=== PATIENT | female | born 1980 | race Caucasian/White ===

== ENCOUNTER 2024-08-08 11:08 | Emergency (ER) | payer MEDICARE, OTHER, SELFPAY ==
[2024-08-08 11:26] VITALS: BP 137/98
[2024-08-08 11:46] VITALS: BMI 43.8
--- NOTE | 2024-08-08 13:31 | ED.GENMED ---
History of Present Illness
General
Chief Complaint: Psychiatric Problem
Source: patient
Exam Limitations: none
Time Seen by Provider: 08/08/24 13:16
Nursing documentation reviewed up to this point in time: agreed with
History of Present Illness
History of Present Illness:
44 y/o F with h/o depression
here after calling a hotline through [facility] of some passive suicidal thoughts
she has no plan
she feels ok but was instructed to come in
holidays are hard fo rher
she is compliant with meds
no complaints medically
here to speak with crisis
Past History
Past History
ED Past Medical History: Hypothyroidism and Psychiatric (Bipolar disorder, chronic anxiety, insomnia, benzodiazepine abuse)
ED Past Surgical History: Orthopedic
Social History
Tobacco: Former smoker (Quit 4 months ago)
Alcohol: None
Drug: None
Personal: Single
Living: alone
Employment: Not employed
Family History
Family History: Other (Breast cancer and diabetes)
Review of Systems
Review of Systems
Allergies reviewed?: Yes
All Other Systems: Not applicable
Phy Exam
Physical Exam
Physical Exam:
GENERAL: Alert , in no apparent distress
CARDIAC: Regular rate and rhythm .
LUNGS: Clear breath sounds bilaterally, no acute respiratory distress, no wheezes/rales/rhonchi
NEUROLOGICAL: Alert and oriented, no focal neuro deficits
SKIN: Warm and dry, skin intact.
PSYCH: Normal and appropriate interaction.
Course
Orders/Labs/Results
Orders:
Orders
08/08/24 11:35
Crisis Consult Urgent
Reason for Consult: depression denies SI
Vital Signs
Initial and Last Documented VS:
Initial Vital Signs
Temp Pulse Resp BP Pulse Ox
36.7 C 83 16 137/98 96
08/08/24 11:26 08/08/24 11:26 08/08/24 11:26 08/08/24 11:26 08/08/24 11:26
Last Documented Vital Signs
Temp Pulse Resp BP Pulse Ox
36.7 C 83 16 137/98 96
08/08/24 11:26 08/08/24 11:26 08/08/24 11:26 08/08/24 11:26 08/08/24 11:26
MDM/Problems Addressed
Differential Diagnosis Includes:
depression
MDM/Problems Addressed:
44 y/o F with depression
here after [facility] hotline for SI this morning and being instructed to come in to speak with someone
pt feels ok now
she has no plain
saw crisis and is cleared to return to her outpatient
she has no medical complaints
denies currrent SI
d/c home
*Critical Care Note
Total Time (30-74mins, 75-104mins- exclusive of procedures): Not Applicable
ED Attending Note
-
Portions of this chart may have been created with voice recognition software.� Occasional wrong word or��sound alike� substitutions may have occurred due to the inherent limitations of voice recognition software.
Discharge Plan
Departure
Patient Disposition: Home (Routine Discharge)
Date of Disposition: 08/08/24
Time of Disposition: 13:36
Patient with high blood pressure during this ER visit?: No
Condition: Fair
Covid-19: Not Applicable
Discharge Problem:
Depression
Instructions: Depression, Adult (DC)
Prescriptions:
No Action
olanzapine [Zyprexa] 15 MG tablet
15 mg PO HS
lamotrigine [Lamictal] 100 MG tablet
400 mg PO NOON
escitalopram oxalate 20 MG tablet
20 mg PO HS
lorazepam [Ativan] 2 MG tablet
2 mg PO TID
docosahexaenoic acid-epa 1 CAP capsule
1 cap PO DAILY
Trintellix 20 MG tablet
20 mg PO HS
Rexulti 2 MG tablet
2 mg PO 1900
pantoprazole 40 MG tablet,delayed release (DR/EC)
40 mg PO DAILY Qty: 14 0RF
cefuroxime axetil 500 MG tablet
500 mg PO BID Qty: 20 0RF
ondansetron HCl 4 MG tablet
4 mg PO TIDPRN PRN (Reason: nausea) Qty: 6 0RF
ibuprofen 600 MG tablet
600 mg PO TIDPRN PRN (Reason: pain) Qty: 30 0RF
naproxen 500 mg tablet
500 mg PO BID PRN (Reason: Pain) Qty: 15 0RF
Referrals:
Shirley Hutson CRNP [Family Provider] - Follow up in 2-3 days
Activity Restrictions/Additional Instructions:
YOU WERE SEEN BY CRISIS TODAY, RETURN TO YOUR OUTPATIENT PROGRAM FOR FURHTER TREATMENT
RETURN TO THE ER FOR ANY CONCERNS
Interventions
Interventions:
*Risk Screen - Suicide Last Done: 08/08/24 11:10
*General Assessment Last Done: 08/08/24 11:46
*Neglect/Abuse Screening Last Done: 08/08/24 13:42
ED- Fall Risk Assessment Last Done: 08/08/24 13:42
*ED COVID-19 Vaccine History Last Done: 08/08/24 11:46
*Nursing Disposition Last Done: 08/08/24 13:42
ED-Psychological Assessment Last Done: 08/08/24 11:46
Discharge Date and Time
Discharge Date/Time: 08/08/24 13:42
Print Language: CHINESE
== END 2024-08-08 13:42 | disposition home or self-care (01) ==
LOC: EMR 11:08
PROVIDERS: EMERGENCY PHYSICIAN Emergency Medicine; FAMILY PHYSICIAN Nurse Practitioner Family
DX: F31.9 Bipolar disorder, unspecified (principal); E03.9 Hypothyroidism, unspecified; F41.9 Anxiety disorder, unspecified; G47.00 Insomnia, unspecified; Z80.3 Family history of malignant neoplasm of breast; Z83.3 Family history of diabetes mellitus; Z87.891 Personal history of nicotine dependence
CPT/HCPCS: 99283

== ENCOUNTER 2025-03-13 18:54 | Emergency (ER) | payer MEDICARE, OTHER, SELFPAY ==
[2025-03-13 18:59] VITALS: BP 145/96
[2025-03-13 19:09] VITALS: BMI 43.0
[2025-03-13] MEDS: CLEOCIN 450 MG PO (19:31)
[2025-03-13] MEDS: TORADOL 15 MG IM (19:32)
--- NOTE | 2025-03-13 19:38 | ED.GENMED ---
History of Present Illness
General
Chief Complaint: Oral/Mouth Problem
Source: patient
Exam Limitations: none
Time Seen by Provider: 03/13/25 19:05
Nursing documentation reviewed up to this point in time: agreed with
History of Present Illness
History of Present Illness:
45-year-old female presenting to the emergency department today with concerns of left-sided tooth discomfort has been ongoing for a few days contacted the dentist who can see her on Saturday, 2 days from today. Denies any fevers has noticed some
swelling to the area. No trouble swallowing or breathing.
Past History
Past History
ED Past Medical History: Hypothyroidism and Psychiatric (Bipolar disorder, chronic anxiety, insomnia, benzodiazepine abuse)
ED Past Surgical History: Orthopedic
Social History
Tobacco: Former smoker (Quit 4 months ago)
Alcohol: None
Drug: None
Personal: Single
Living: alone
Employment: Not employed
Family History
Family History: Other (Breast cancer and diabetes)
Review of Systems
Review of Systems
Allergies reviewed?: Yes
All Other Systems: ROS reviewed and negative except as documented in HPI and ROS
Phy Exam
Physical Exam
Physical Exam:
GENERAL: Alert , in no apparent distress
EYE: pupils equal and reactive
NECK: Supple, no significant adenopathy.
ENT: Very slight redness and irritation to the left sided premolar region of the mandibular region laterally. Normal posterior pharynx normal dental mucosa otherwise. o/p clr, mmm.
CARDIAC: Regular rate and rhythm .
LUNGS: Clear breath sounds bilaterally, no acute respiratory distress, no wheezes/rales/rhonchi
ABDOMEN: Soft, without focal tenderness, no r/g, no cvat
NEUROLOGICAL: Alert and oriented, no focal neuro deficits
SKIN: Warm and dry, skin intact.
MUSCULOSKELETAL: No edema, well perfused.
PSYCH: Normal and appropriate interaction.
Course
Orders/Labs/Results
Orders:
Orders
03/13/25 19:23
Clindamycin HCl [Cleocin] 450 mg PO NOW STA
Ketorolac [Toradol] 15 mg IM NOW STA
Vital Signs
Initial and Last Documented VS:
Initial Vital Signs
Temp Pulse Resp BP Pulse Ox
98.0 F 79 16 145/96 99
03/13/25 18:59 03/13/25 18:59 03/13/25 18:59 03/13/25 18:59 03/13/25 18:59
Last Documented Vital Signs
Temp Pulse Resp BP Pulse Ox
98.0 F 79 16 145/96 99
03/13/25 18:59 03/13/25 18:59 03/13/25 18:59 03/13/25 18:59 03/13/25 18:59
MDM/Problems Addressed
MDM/Problems Addressed:
45-year-old female presenting to the emergency department today with concerns of potential dental infection. Here reassuring examination no significant swelling some slight redness and irritation to the tissue surrounding the left mandibular
premolar. Plan to start antibiotic pending dental follow-up. Return precautions given.
*Pulse Oximetry
SaO2: 99
Oxygen Mode of Delivery: Room air
Patient hypoxic: no (99)
*Critical Care Note
Total Time (30-74mins, 75-104mins- exclusive of procedures): Not Applicable
ED Attending Note
-
Portions of this chart may have been created with voice recognition software.� Occasional wrong word or��sound alike� substitutions may have occurred due to the inherent limitations of voice recognition software.
Discharge Plan
Departure
Patient Disposition: Home (Routine Discharge)
Date of Disposition: 03/13/25
Time of Disposition: 19:39
Patient with high blood pressure during this ER visit?: No
Condition: Good
Covid-19: Not Applicable
Discharge Problem:
Acute pulpitis
Instructions: Dental Pain (DC)
Prescriptions:
New
clindamycin HCl [Cleocin HCl] 300 mg capsule
300 mg PO TID 7 Days Qty: 21 0RF
No Action
olanzapine [Zyprexa] 15 MG tablet
15 mg PO HS
lamotrigine [Lamictal] 100 MG tablet
400 mg PO NOON
escitalopram oxalate 20 MG tablet
20 mg PO HS
lorazepam [Ativan] 2 MG tablet
2 mg PO TID
docosahexaenoic acid-epa 1 CAP capsule
1 cap PO DAILY
Trintellix 20 MG tablet
20 mg PO HS
Rexulti 2 MG tablet
2 mg PO 1900
pantoprazole 40 MG tablet,delayed release (DR/EC)
40 mg PO DAILY Qty: 14 0RF
cefuroxime axetil 500 MG tablet
500 mg PO BID Qty: 20 0RF
ondansetron HCl 4 MG tablet
4 mg PO TIDPRN PRN (Reason: nausea) Qty: 6 0RF
ibuprofen 600 MG tablet
600 mg PO TIDPRN PRN (Reason: pain) Qty: 30 0RF
naproxen 500 mg tablet
500 mg PO BID PRN (Reason: Pain) Qty: 15 0RF
Referrals:
Shirley Hutson CRNP [Family Provider]
Activity Restrictions/Additional Instructions:
You came to the emergency department today with concerns of dental discomfort. Please take the prescribed antibiotic and follow-up closely with your dentist in 2 days. Return for any worsening, new or concerning symptoms.
Interventions
Interventions:
*Risk Screen - Suicide Last Done: 03/13/25 19:09
*General Assessment Last Done: 03/13/25 19:09
*Neglect/Abuse Screening Last Done: 03/13/25 19:09
*ED- Fall Risk Assessment Last Done: 03/13/25 19:09
*ED COVID-19 Vaccine History Last Done: 03/13/25 19:09
Discharge Date and Time
Print Language: CANADIAN
== END 2025-03-13 19:47 | disposition home or self-care (01) ==
LOC: EMR 18:54
PROVIDERS: EMERGENCY PHYSICIAN Emergency Medicine; FAMILY PHYSICIAN Nurse Practitioner Family
DX: K04.01 Reversible pulpitis (principal); E03.9 Hypothyroidism, unspecified; F31.9 Bipolar disorder, unspecified; F41.9 Anxiety disorder, unspecified; G47.00 Insomnia, unspecified; F13.10 Sedative, hypnotic or anxiolytic abuse, uncomplicated; Z80.3 Family history of malignant neoplasm of breast; Z83.3 Family history of diabetes mellitus; Z87.891 Personal history of nicotine dependence
CPT/HCPCS: 99282; 96372

== ENCOUNTER 2025-03-14 03:01 | Emergency (ER) | payer MEDICARE, OTHER, SELFPAY ==
[2025-03-14 03:20] VITALS: BMI 41.2
--- NOTE | 2025-03-14 03:50 | ED.GENMED ---
History of Present Illness
General
Chief Complaint: Dental Problem
Time Seen by Provider: 03/14/25 03:14
History of Present Illness
History of Present Illness:
45-year-old female presenting to the emergency department for dental pain. Patient reports pain for the past several days. She was seen in the ER yesterday for the dental pain, started on clindamycin. Pain is located on the left upper and lower
teeth. She has not seen a dentist for several years. She is worried because she took too much Tylenol and Motrin. She notes since 7 PM she took about 2000 mg of ibuprofen and since noon yesterday, took about 3900 mg of Tylenol. She called poison
control for concern of overdose. She reports that the Tylenol and Motrin are not helping her pain. She denies fever. She denies difficulty swallowing. She denies additional acute medical complaints
Past History
Past History
ED Past Medical History: Hypothyroidism and Psychiatric (Bipolar disorder, chronic anxiety, insomnia, benzodiazepine abuse)
ED Past Surgical History: Orthopedic
Social History
Tobacco: Former smoker (Quit 4 months ago)
Alcohol: None
Drug: None
Personal: Single
Living: alone
Employment: Not employed
Family History
Family History: Other (Breast cancer and diabetes)
Phy Exam
Physical Exam
Physical Exam:
General: Well-appearing, no clinical signs of dehydration
HEENT: protecting airway, minimal swelling to the left side of the face. No trismus. Overall poor dentition with multiple areas of decay. No palpation of external abscess. Necrosis to multiple teeth to the left upper and lower jaw region.
Neck: appears supple
CV: Normal heart rate, regular rhythm, no evidence of cyanosis
Resp: No accessory muscle use, no increased work of breathing
Abd: No distention
Extremities: No deformities, no swelling
Neuro: alert, no focal neurologic deficit
: deferred
Rectal: deferred
Psych: Normal affect
Skin: Intact
Course
Orders/Labs/Results
Orders:
Orders
03/14/25 03:46
Oxycodone/Acetaminophen [Percocet 5/325] 1 tablet PO NOW STA
Vital Signs
Initial and Last Documented VS:
Initial Vital Signs
Pulse Ox
96
03/14/25 03:20
Last Documented Vital Signs
Pulse Ox
96
03/14/25 03:20
MDM/Problems Addressed
MDM/Problems Addressed:
45-year-old female presenting for persistent dental pain. Vital signs on arrival are normal.
On exam patient is resting comfortably, nontoxic. Minimal facial swelling on the left side, which is area of pain. No trismus. Normal phonation of voice. No palpation of any external abscesses. No oropharyngeal swelling or concern for
retropharyngeal abscess. Patient's primary concern was her pain and unintentional overdose of Tylenol and Motrin. And going through the dosages and amount that she took, without concern for any serious overdose at this time. Patient is still
within appropriate range for a 24-hour period. Will give 1 dose of Percocet here, however explained that Percocet also contains Tylenol so that she should not take any additional Tylenol until tomorrow afternoon, and same goes for ibuprofen.
Otherwise feel stable for discharge with dental follow-up. Return precautions discussed
*Pulse Oximetry
SaO2: 96
Oxygen Mode of Delivery: Room air
Patient hypoxic: no
*Critical Care Note
Total Time (30-74mins, 75-104mins- exclusive of procedures): Not Applicable
ED Attending Note
-
Portions of this chart may have been created with voice recognition software.� Occasional wrong word or��sound alike� substitutions may have occurred due to the inherent limitations of voice recognition software.
Discharge Plan
Departure
Prescriptions:
No Action
olanzapine [Zyprexa] 15 MG tablet
15 mg PO HS
lamotrigine [Lamictal] 100 MG tablet
400 mg PO NOON
escitalopram oxalate 20 MG tablet
20 mg PO HS
lorazepam [Ativan] 2 MG tablet
2 mg PO TID
docosahexaenoic acid-epa 1 CAP capsule
1 cap PO DAILY
Trintellix 20 MG tablet
20 mg PO HS
Rexulti 2 MG tablet
2 mg PO 1900
pantoprazole 40 MG tablet,delayed release (DR/EC)
40 mg PO DAILY Qty: 14 0RF
cefuroxime axetil 500 MG tablet
500 mg PO BID Qty: 20 0RF
ondansetron HCl 4 MG tablet
4 mg PO TIDPRN PRN (Reason: nausea) Qty: 6 0RF
ibuprofen 600 MG tablet
600 mg PO TIDPRN PRN (Reason: pain) Qty: 30 0RF
naproxen 500 mg tablet
500 mg PO BID PRN (Reason: Pain) Qty: 15 0RF
clindamycin HCl [Cleocin HCl] 300 mg capsule
300 mg PO TID 7 Days Qty: 21 0RF
naproxen 500 mg tablet
500 mg PO BID PRN (Reason: Pain) Qty: 10 0RF
Referrals:
Shirley Hutson CRNP [Family Provider]
Interventions
Interventions:
*Risk Screen - Suicide Last Done: 03/14/25 03:06
*General Assessment Last Done: 03/14/25 03:06
*Neglect/Abuse Screening Last Done: 03/14/25 03:06
*ED- Fall Risk Assessment Last Done: 03/14/25 03:06
*ED COVID-19 Vaccine History Last Done: 03/14/25 03:06
Discharge Date and Time
Print Language: [place] CITIZEN
[2025-03-14] MEDS: PERCOCET 5/325 1 TABLET PO (03:53)
[2025-03-14 04:15] VITALS: BP 113/72
== END 2025-03-14 04:20 | disposition home or self-care (01) ==
LOC: EMR 03:01
PROVIDERS: EMERGENCY PHYSICIAN Student in an Organized Health Care Education/Training Program; FAMILY PHYSICIAN Nurse Practitioner Family
DX: K08.89 Other specified disorders of teeth and supporting structures (principal); E03.9 Hypothyroidism, unspecified; F31.9 Bipolar disorder, unspecified; F41.9 Anxiety disorder, unspecified; Z80.3 Family history of malignant neoplasm of breast; Z83.3 Family history of diabetes mellitus; Z87.891 Personal history of nicotine dependence
CPT/HCPCS: 99282